=== PATIENT | female | born 1990 | race American Indian/Alaskan Native ===

== ENCOUNTER 2016-11-09 20:13 | Outpatient (CLI) | payer MEDICAID ==
[2016-11-09 20:28] VITALS: BP 115/65
[2016-11-09] MEDS ORDERED: LACTATED RINGERS 500 ML IV ONE (20:31)
[2016-11-09] MEDS ORDERED: PERCOCET 5/325 PO ONE (20:51)
--- NOTE | 2016-11-09 23:16 | Ultrasound Report ---
FINAL REPORT PROCEDURE: US OB LIMITED TECHNIQUE: Real-time limited sonographic examination was performed for evaluation of size, position, heartbeat, fluid volume for each fetus with image documentation (1 or more fetuses). CPT 64736 HISTORY: fall COMPARISON: No prior studies are available for comparison. FINDINGS: Biophysical profile: breathing movements: 2. movements: 2. posterior and tone: 2. Amniotic fluid volume: 2. Total score: 8/8. Fetus demonstrates no distress. Amniotic fluid index is 11.6 centimeters. Placenta is posterior and grade 2 without evidence of previa. Heart rate is 140 beats per minute.. IMPRESSION: Normal biophysical profile. Normal amniotic fluid volume. No sign of distress. There is no evidence of placenta previa or placental abruption..
--- NOTE | 2016-11-09 23:19 | Ultrasound Report ---
FINAL REPORT PROCEDURE: US OB LIMITED TECHNIQUE: Real-time limited sonographic examination was performed for evaluation of size, position, heartbeat, fluid volume for each fetus with image documentation (1 or more fetuses). CPT 37625 HISTORY: fall COMPARISON: No prior studies are available for comparison. FINDINGS: Biophysical profile: breathing movements: 2. movements: 2. posterior and tone: 2. Amniotic fluid volume: 2. Total score: 8/8. Fetus demonstrates no distress. Amniotic fluid index is 11.6 centimeters. Placenta is posterior and grade 2 without evidence of previa. Heart rate is 140 beats per minute.. IMPRESSION: Normal biophysical profile. Normal amniotic fluid volume. No sign of distress. There is no evidence of placenta previa or placental abruption..
== END 2016-11-09 22:25 | disposition home or self-care (01) ==
LOC: TRG 20:13
PROVIDERS: ATTEND Obstetrics & Gynecology
DX: O26.893 Other specified pregnancy related conditions, third trimester (principal); R10.30 Lower abdominal pain, unspecified; W01.0XXA Fall on same level from slipping, tripping and stumbling without subsequent striking against object, initial encounter; Z3A.30 30 weeks gestation of pregnancy; Y93.89 Activity, other specified; Y92.89 Other specified places as the place of occurrence of the external cause; Y99.8 Other external cause status
CPT/HCPCS: 59025; 76815; 76819

== ENCOUNTER 2016-12-30 08:06 | Inpatient (IN) | payer MEDICAID ==
--- NOTE | 2016-12-30 08:57 | History and Physical Report ---
History of Present Illness Date of examination: 12/30/16 Date of admission: 12/30/16 08:07 Chief complaint: contractions History of present illness: Pt is a 26 year old -[place] female AMELIA 01/09/17 at 38w4d who presents with regular contractions since 6 am and dilation of 9 cm on admission. She denies vaginal bleeding or leakage of fluid. She has had care at [facility] since 30 wks complicated by late entry to care and glucose intolerance. She is GBS unknown. Past History Past Medical History: asthma Past Surgical History: appendectomy [employer] History: chlamydia (remote from this ), herpes - Obstetrical History Expected Date of Delivery: 01/09/17 Actual Gestation: 38 Week(s) 4 Day(s) : 4 Para: 2 Hx # Term Pregnancies: 2 Number of Pregnancies: 0 Spontaneous Abortions: 0 Induced : 1 Number of Living Children: 2 Medications and Allergies Allergies Allergy/AdvReac Type Severity Reaction Status Date / Time peanut Allergy Angioedema Verified 04/28/15 12:14 Home Medications Medication Instructions Recorded Confirmed Last Taken Type Vit-Fe Fumar-FA [ 1 tab PO QDAY 11/09/16 11/09/16 11/09/16 History Vitamin] Review of Systems All systems: negative - Vital Signs Vital signs: Vital Signs Pulse BP 72 136/80 12/30/16 08:17 12/30/16 08:17 Temp Pulse Resp BP Pulse Ox 90 122/68 12/30/16 08:47 12/30/16 08:47 - Physical Exam Breasts: Positive: deferred Cardiovascular: Regular rate Lungs: Positive: Clear to auscultation Abdomen: Positive: soft (gravid) Uterus: Positive: enlarged (gravid ) Extremities: Positive: normal - Obstetrical FHR: category 2 Uterine Contraction Monitor Mode: External Cervical Dilatation: 9 Cervical Effacement Percentage: 100 station: 0 Uterine Contraction Pattern: Regular Uterine Tone Measurement Phase: Resting Uterine Contraction Intensity: Strong/Firm Results All other labs normal. Assessment and Plan A: IUP at 38w4d Active labor GBS unknown Genital herpes P: Admit to labor and delivery. Routine intrapartum care. Anticipate .
[2016-12-30] MEDS ORDERED: PITOCin/NS 20 UNIT/1000ML DRIP 20 UNITS/1,000 ML BAG IV SCH ×2 (09:00→11:31)
[2016-12-30] MEDS ORDERED: ZOFRAN IV PRN ×2 (09:00→11:31)
[2016-12-30] MEDS ORDERED: MINERAL OIL PO PRN (09:00)
[2016-12-30] MEDS ORDERED: LACTATED RINGERS 1,000 ML IV SCH (09:00)
[2016-12-30] MEDS ORDERED: ePHEDrine SULFATE IV PRN (09:00)
[2016-12-30] MEDS ORDERED: SUBLIMAZE IV PRN (09:00)
[2016-12-30] MEDS ORDERED: NARCAN 0.4 MG/1 ML IV PRN (09:00)
--- NOTE | 2016-12-30 09:05 | Procedure Note ---
OB Delivery Note - Delivery Date of Delivery: 12/30/16 Surgeon: ELSA ESTRELLA Estimated blood loss: 300cc - Vaginal Delivery presentation: vertex Delivery position: OA Intrapartum events: precipitous labor- <3hr Delivery induction: none Delivery augmentation: rupture of membranes Delivery monitor: external FHT, external uterine Route of delivery: Delivery placenta: spontaneous Delivery cord: 3 umbilical vessels Episiotomy: none Delivery laceration: other (Periurethral laceration- hemostatic ) Anesthesia: none Delivery comments: Pt progressed to complete/complete/+3 and pushed to deliver a viable female over intact perineum via under no anesthesia. Head delivered in DANIA presentation quickly followed by shoulders and body. placed on maternal abdomen and bulb suctioned. Cord clamped and cut and handed to nurse in attendance. Placenta delivered spontaneously (3VC, intact). Pitocin 10 units IM administered secondary to no IV access. Vagina and perineum explored and a periurethral laceration was noted to be hemostatic. EBL 300 mL. - Infant A at 1 minute: 8 at 5 minutes: 9 Gender: Female (3166g (7lb 0oz) @ 0826 am)
[2016-12-30 09:26] LABS: Hematocrit 37.5 % (30.3-42.9); Hemoglobin 12.2 gm/dl (10.1-14.3); Mean Corpuscular HGB Conc 33 % (30-34); Mean Corpuscular Hemoglobin 30 pg (28-32); Mean Corpuscular Volume 92 fl (79-97); Platelet Count 128 K/mm3 (140-440); Red Blood Count 4.07 M/mm3 (3.65-5.03); Red Cell Distribution Width 14.3 % (13.2-15.2); White Blood Count 5.9 K/mm3 (4.5-11.0)
[2016-12-30] MEDS ORDERED: BRETHINE IVP PRN (09:30)
[2016-12-30] MEDS ORDERED: BRETHINE SUB-Q PRN (09:30)
[2016-12-30] MEDS ORDERED: MOTRIN PO ONE (11:30)
[2016-12-30] MEDS ORDERED: BENADRYL PO PRN (11:31)
[2016-12-30] MEDS ORDERED: NORCO 5/325 PO PRN (11:31)
[2016-12-30] MEDS ORDERED: PRENATAL VITAMIN PO SCH (11:31)
[2016-12-30] MEDS ORDERED: SODIUM CHLORIDE FLUSH SYRINGE 10 ML IV NR (11:31)
[2016-12-30] MEDS ORDERED: PHENERGAN PO PRN (11:31)
[2016-12-30] MEDS ORDERED: DERMOPLAST TP PRN (11:31)
[2016-12-30] MEDS ORDERED: PHENERGAN PR PRN (11:31)
[2016-12-30] MEDS ORDERED: DULCOLAX PR PRN (11:31)
[2016-12-30] MEDS ORDERED: MILK OF MAGNESIA PO PRN (11:31)
[2016-12-30] MEDS ORDERED: TUCKS PAD TP PRN (11:31)
[2016-12-30] MEDS ORDERED: LANSINOH TP PRN (11:31)
[2016-12-30] MEDS ORDERED: TYLENOL PO PRN (11:31)
[2016-12-30] MEDS: MOTRIN PO SCH ×2 (11:40→18:06)
[2016-12-30 23:28] LABS: Hematocrit 32.9 % (30.3-42.9); Hemoglobin 10.9 gm/dl (10.1-14.3)
[2016-12-31] MEDS: FEOSOL PO SCH ×3 (00:31→22:30)
[2016-12-31] MEDS: MOTRIN PO SCH ×3 (05:43→18:50)
[2016-12-31] MEDS ORDERED: M-M-R II VACCINE SUB-Q ONE (09:06)
[2016-12-31] MEDS ORDERED: BOOSTRIX IM ONE (09:06)
--- NOTE | 2016-12-31 12:13 | Progress Note ---
Assessment and Plan O: VSS AF PP H/H: 10.9/32.9 A: Stable PP Day 1 GBS Unknow P: AM discharge Subjective - Subjective Date of service: 12/31/16 Patient reports: appetite normal, voiding normally, pain well controlled, flatus , ambulating normally [place]: doing well Objective - Vital Signs Latest vital signs: Vital Signs Temp Pulse Resp BP BP Pulse Ox 12/31/16 01:48 98.2 F 68 20 128/63 12/31/16 00:30 18 12/30/16 20:05 98.2 F 75 20 108/58 12/30/16 16:47 97.7 F 82 18 112/71 98 12/30/16 14:39 98.6 F 80 20 130/79 Intake and Output 12/30/16 12/31/16 12/31/16 22:59 06:59 14:59 Intake Total 720 240 Balance 720 240 Intake: Oral 720 240 Other: Total, Intake Amount 240 240 # Voids Void 1 1 - Exam Breasts: Present: normal Abdomen: Present: normal appearance, soft. Absent: distention, tenderness Uterus: Present: normal, firm, fundal height below umbilicus. Absent: bogginess Extremities: Present: normal
--- NOTE | 2016-12-31 17:30 | Discharge Summary ---
Providers - Providers Date of Admission: 12/30/16 08:07 Date of discharge: 01/01/17 Attending physician: ELSA ESTRELLA 12/30/16 11:31 Consult to Associate Programmer [CONS] Routine Reason For Exam: Primary care physician: ELSA ESTRELLA Hospitalization Reason for admission: active labor, IUP at term Delivery: Episiotomy: none Laceration: none Incision: normal Other procedures: none complications: none Discharge diagnosis: IUP at term delivered baby: female Condition at discharge: Good Disposition: DC-01 TO HOME OR SELFCARE Plan - Discharge Medications Prescriptions: Ibuprofen [Motrin 600 MG tab] 600 mg PO Q6H #30 tablet - Provider Discharge Summary Activity: routine, no sex for 6 weeks, no heavy lifting 4 weeks, no strenuous exercise Diet: routine Additional instructions: [] Smoking cessation referral if applicable(refer to patient education folder for contact #) [] Refer to [facility]'s [facility] Booklet Call your doctor immediately for: * Fever > 100.5 * Heavy vaginal bleeding ( >1 pad per hour) * Severe persistent headache * Shortness of breath * Reddened, hot, painful area to leg or breast * Drainage or odor from incision. * Keep incision clean and dry at all times and follow doctor's instructions regarding bathing/showering - Follow up plan Follow up: ELSA ESTRELLA MD [Primary Care Provider] - (RTO 4 weeks )
[2017-01-01] MEDS: FEOSOL PO SCH ×2 (00:09→11:02)
[2017-01-01] MEDS: MOTRIN PO SCH ×2 (00:10→05:11)
[2017-01-01 19:05] VITALS: BP 106/59
== END 2017-01-01 17:35 | disposition home or self-care (01) | DRG 774 ==
LOC: TRG 08:06 → LD 08:07 → TRG 08:12 → OB 10:45
PROVIDERS: ADMIT Obstetrics & Gynecology; ATTEND Obstetrics & Gynecology
PROC: 10E0XZZ Delivery of Products of Conception, External Approach (ICD-10-PCS; principal; 2016-12-30)
PROC: 3E0234Z Introduction of Serum, Toxoid and Vaccine into Muscle, Percutaneous Approach (ICD-10-PCS; 2016-12-31)
DX: O62.3 Precipitate labor (principal); O98.52 Other viral diseases complicating childbirth; O71.82 Other specified trauma to perineum and vulva; O99.52 Diseases of the respiratory system complicating childbirth; J45.909 Unspecified asthma, uncomplicated; Z37.0 Single live birth; Z3A.38 38 weeks gestation of pregnancy; Z91.010 Allergy to peanuts; Z23 Encounter for immunization; B00.9 Herpesviral infection, unspecified
CPT/HCPCS: 36415; 85014; 85018; 85027; 86592; 86850; 86900; 86901; 99211; A6250; G0463; J2590; J3010